=== PATIENT | male | born 1990 | race Caucasian/White ===

== ENCOUNTER 2024-07-18 09:57 | Emergency (ER) | payer BC, OTHER ==
[2024-07-18 10:04] VITALS: TEMP 98.9
--- NOTE | 2024-07-18 10:33 | ED ---
Chest Pain HPI - General Chief Complaint: Chest Pain Stated Complaint: left side chest pain Time Seen by Provider: 07/18/24 10:15 Source: patient, RN notes reviewed Mode of arrival: ambulatory Limitations: no limitations - History of Present Illness Initial Comments: 34-year-old male with no significant past medical history presenting for chest pain 20 minutes prior to arrival. States he was laying down watching a movie when he suddenly began to feel a stabbing pain in the left side of his chest underneath his ribs worse with inspiration. States the pain was worse with laying flat and resolved when he sat up in the stretcher. He has never had this before. He also reports he became diaphoretic when it started and did report some numbness/tingling in his left arm. No medical conditions however states he does not go to the doctor. He does admit to vaping. - Related Data Previous Rx's Medication Instructions Recorded Naproxen Sodium [Anaprox Ds] 550 mg PO Q12HR #20 tab 09/05/13 traMADol HCl [Ultram] 50 mg PO Q4H PRN #20 tab 09/05/13 Allergies Allergy/AdvReac Type Severity Reaction Status Date / Time No Known Allergies Allergy Verified 09/04/13 22:41 Review of Systems ROS Statement: Those systems with pertinent positive or pertinent negative responses have been documented in the HPI. ROS Other: All systems not noted in ROS Statement are negative. EKG Findings - EKG Results: EKG: interpreted by TONY (EKG reveals normal sinus rhythm with no acute ST changes. Ventricular rate 99 bpm, NE interval 148, QRS duration 96, QT/QTc 333/389) Past Medical History Past Medical History: Asthma History of Any Multi-Drug Resistant Organisms: None Reported Past Surgical History: No Surgical Hx Reported Past Psychological History: No Psychological Hx Reported Smoking Status: Vaper Past Alcohol Use History: None Reported Past Drug Use History: None Reported, Marijuana General Exam Limitations: no limitations General appearance: alert, in no apparent distress Head exam: Present: atraumatic, normocephalic, normal inspection Eye exam: Present: normal appearance, PERRL, EOMI. Absent: scleral icterus, conjunctival injection, periorbital swelling ENT exam: Present: normal exam, mucous membranes moist Neck exam: Present: normal inspection. Absent: tenderness, meningismus, lymphadenopathy Respiratory exam: Present: normal lung sounds bilaterally. Absent: respiratory distress, wheezes, rales, rhonchi, stridor, chest wall tenderness Cardiovascular Exam: Present: regular rate, normal rhythm, normal heart sounds. Absent: systolic murmur, diastolic murmur, rubs, gallop, clicks Neurological exam: Present: alert, oriented X3 Psychiatric exam: Present: normal affect, normal mood Skin exam: Present: warm, dry, intact, normal color. Absent: rash Course Vital Signs 07/18/24 07/18/24 10:00 12:32 Temperature 98.9 F Pulse Rate 119 H 95 Respiratory 24 18 Rate Blood Pressure 163/96 139/87 O2 Sat by Pulse 98 97 Oximetry Chest Pain MDM - MDM Was pt. sent in by a medical professional or institution (, PA, UTILITIES EQUIPMENT REPAIRER, urgent care, hospital, or usp...) When possible be specific @ -No Did you speak to anyone other than the patient for history (EMS, parent, family, police, friend...)? What history was obtained from this source @ -No Did you review nursing and triage notes (agree or disagree)? Why? @ -I reviewed and agree with nursing and triage notes Were old charts reviewed (outside hosp., previous admission, EMS record, old EKG, old radiological studies, urgent care reports/EKG's, usp records)? Report findings @ -No old charts were reviewed Differential Diagnosis (chest pain, altered mental status, abdominal pain women, abdominal pain men, vaginal bleeding, weakness, fever, dyspnea, syncope, headache, dizziness, GI bleed, back pain, seizure, CVA, palpatations, mental health, musculoskeletal)? @ -Differential Chest Pain: Stable Angina, Unstable Angina, STEMI, NSTEMI Aortic Dissection, Pneumothorax, Musculoskeletal, Esophageal Spasm GERD, Cholecystitis, Pancreatitis, Zoster, this is not meant to be an all-inclusive list. EKG interpreted by me (3pts min.). @ -As above X-rays interpreted by me (1pt min.). @ -Chest x-ray reveals no acute process CT interpreted by me (1pt min.). @ -None done U/S interpreted by me (1pt. min.). @ -None done What testing was considered but not performed or refused? (CT, X-rays, U/S, labs)? Why? @ -None What meds were considered but not given or refused? Why? @ -None Did you discuss the management of the patient with other professionals (andrés barnes i.e. , PA, UTILITIES EQUIPMENT REPAIRER, lab, RT, psych nurse, social media editor, warehouse material handler, teacher, account officer, spring encaser)? Give summary @ -No Was smoking cessation discussed for >3mins.? @ -No Was critical care preformed (if so, how long)? @ -No Were there social determinants of health that impacted care today? How? (Homelessness, low income, unemployed, alcoholism, drug addiction, transportation, low edu. Level, literacy, decrease access to med. care, fci, rehab)? @ -No Was there de-escalation of care discussed even if they declined (Discuss DNR or withdrawal of care, Hospice)? DNR status @ -No What co-morbidities impacted this encounter? (DM, HTN, Smoking, COPD, CAD, Cancer, CVA, ARF, Chemo, Hep., AIDS, mental health diagnosis, sleep apnea, morbid obesity)? @ -None Was patient admitted / discharged? Hospital course, mention meds given and route, prescriptions, significant lab abnormalities, going to OR and other pertinent info. @ -Discharge. 34-year-old male presenting for chest pain x 20 minutes prior to arrival. Pain had resolved prior to my history and physical examination. Patient is tachycardic at 119 bpm. No reproducible tenderness. Provided with Toradol for supportive care. EKG reveals normal sinus rhythm with no acute ST changes. Chest x-ray reveals no acute process. Lab work including CBC, CMP, troponin, D-dimer, coags, magnesium unremarkable. Repeat troponin undetectable. Discussed negative results with patient. Upon reevaluation, patient continues to be asymptomatic. I do not identify any emergent etiology causing symptoms today. Symptoms do not appear to be cardiac in nature. Patient can be safely discharged home with close outpatient follow-up with PCP. Patient is agreeable to plan. I discussed case with my ED attending Dr. Walker. Undiagnosed new problem with uncertain prognosis? @ -No Drug Therapy requiring intensive monitoring for toxicity (Heparin, Nitro, Insulin, Cardizem)? @ -No Were any procedures done? @ -No Diagnosis/symptom? @ -Chest pain Acute, or Chronic, or Acute on Chronic? @ -Acute Uncomplicated (without systemic symptoms) or Complicated (systemic symptoms)? @ -Uncomplicated Side effects of treatment? @ -No Exacerbation, Progression, or Severe Exacerbation? @ -No Poses a threat to life or bodily function? How? (Chest pain, [place], [place], pneumonia, PE, COPD, DKA, ARF, appy, cholecystitis, CVA, Diverticulitis, Homicidal, Suicidal, threat to staff... and all critical care pts) @ -Not at this time Disposition Clinical Impression: Chest pain Disposition: HOME SELF-CARE Condition: Stable Instructions (If sedation given, give patient instructions): Chest Pain (ED) Additional Instructions: Please return to the Emergency Department if symptoms worsen or any other concerns. Is patient prescribed a controlled substance at d/c from ED?: No Referrals: None,Stated [Primary Care Provider] - 1-2 days [facility] [Provider Group] - 1-2 days Forms: Area PCPs Time of Disposition: 14:21
[2024-07-18 10:51] LABS: Basophils # (A) 0.08 10*3/uL (0.00-0.10); Basophils % (A) 1.2 %; Eosinophils # (A) 0.48 10*3/uL (0.04-0.35); HCT 43.4 % (39.6-50.0); HGB 15.1 g/dL (13.0-17.0); Lymphocytes # (A) 2.46 10*3/uL (0.90-5.00); Lymphocytes % (A) 35.9 %; MCH 31.4 pg (27.0-32.0); MCHC 34.8 g/dL (32.0-37.0); MCV 90.2 fL (80.0-97.0); Mean Platelet Volume 9.8 fL (9.5-12.2); Monocytes # (A) 0.81 10*3/uL (0.20-1.00); Monocytes % (A) 11.8 %; Neutrophils # (A) 2.99 10*3/uL (1.80-7.70); Neutrophils % (A) 43.7 %; Platelet Count 318 10*3/uL (140-440); RBC 4.81 10*6/uL (4.40-5.60); RDW 12.3 % (11.5-14.5); WBC 6.85 10*3/uL (4.50-10.00)
[2024-07-18 11:17] LABS: ALT 82 U/L (4-49); AST 36 U/L (17-59); African American GFR (CKD) >90 (>60 ml/min/1.73 sqM); Albumin 4.6 g/dL (3.5-5.0); Alkaline Phosphatase 49 U/L (38-126); Anion Gap 9 mmol/L; Blood Urea Nitrogen 13 mg/dL (9-20); Calcium 9.9 mg/dL (8.4-10.2); Carbon Dioxide 24 mmol/L (22-30); Chloride 105 mmol/L (98-107); Glucose 176 mg/dL (74-99); Magnesium 1.8 mg/dL (1.6-2.3); Non-African American GFR(CKD) >90 (>60 ml/min/1.73 sqM); Potassium 4.6 mmol/L (3.5-5.1); Sodium 138 mmol/L (137-145); Total Bilirubin 0.5 mg/dL (0.2-1.3); Total Protein 7.6 g/dL (6.3-8.2)
[2024-07-18] MEDS: KETOROLAC 15 MG/ML 1 ML VIAL IVP STA (11:18)
--- NOTE | 2024-07-18 11:32 | XR ---
EXAMINATION TYPE: XR chest 2V DATE OF EXAM: 07/18/2024 10:51 AM COMPARISON: None CLINICAL INDICATION: Male, 34 years old with history of chest pain; [facility] TECHNIQUE: XR chest 2V Frontal and lateral views of the chest. FINDINGS: Lungs/Pleura: There is no evidence of pleural effusion, focal consolidation, or pneumothorax. Pulmonary vascularity: Unremarkable. Heart/mediastinum: Cardiomediastinal silhouette is unremarkable. Musculoskeletal: No acute osseous pathology. IMPRESSION: No acute cardiopulmonary disease/process. [facility], , 07/18/2024 11:30 AM
[2024-07-18 11:36] LABS: INR 0.9 (<1.2); Partial Thromboplastin Time 23.6 sec (22.0-30.0); Prothrombin Time 10.1 sec (10.0-12.5)
[2024-07-18 12:32] VITALS: PULSE 95; RESP 18
[2024-07-18 14:44] VITALS: BP 147/95
== END 2024-07-18 14:44 | disposition home or self-care (01) ==
LOC: EC 09:57
DX: R07.9 Chest pain, unspecified (principal); F17.290 Nicotine dependence, other tobacco product, uncomplicated
CPT/HCPCS: 36415; 71046; 80053; 83735; 84484; 85025; 85379; 85610; 85730; 93005; 99285